=== PATIENT | female | born 1985 | race Caucasian/White ===

== ENCOUNTER 2016-06-26 17:09 | Observation (INO) | payer MEDICAID ==
[~2016-06-26] VITALS: Ht 154.9 cm; Wt 79.8 kg
[2016-06-26] MEDS ORDERED: NATURAL IRON65 MG PO (18:11)
[2016-06-26] MEDS ORDERED: PRENATAL LOW IR1 TA1 PO (18:11)
[2016-06-26 18:16] VITALS: BP 102/68
[2016-06-26] MEDS ORDERED: TERBUTALINE 1 MG/ML VIAL SUBQ SCH (21:35)
[2016-06-26] MEDS ORDERED: TERBUTALINE 1 MG/ML VIAL SUBQ ONE (22:39)
[2016-06-27] MEDS ORDERED: TERBUTALINE 2.5 MG TAB ONE ×2 (00:10→10:32)
[2016-06-27] MEDS ORDERED: TERBUTALINE 2.5 MG TAB PO SCH (06:00)
--- NOTE | 2016-06-27 08:36 | NUR ---
PATIENT HAS BEEN SCREENED AND CATEGORIZED LOW NUTRITION RISK. PATIENT WILL BE SEEN WITHIN 7 DAYS OF ADMISSION. 07/03/[address]
== END 2016-06-27 11:45 | disposition home or self-care (01) ==
LOC: MLD 17:09
PROVIDERS: ADMIT Obstetrics & Gynecology; ATTEND Obstetrics & Gynecology
DX: O26.899 Other specified pregnancy related conditions, unspecified trimester (principal); R10.9 Unspecified abdominal pain; Z3A.00 Weeks of gestation of pregnancy not specified
CPT/HCPCS: 59025; 76805; 96372; G0378; J3105; Q0092

== ENCOUNTER 2016-06-27 18:01 | Inpatient (IN) | payer MEDICAID ==
[~2016-06-27] VITALS: Ht 154.9 cm; Wt 78.5 kg
[~2016-06-27 18:01] MED LIST: NATURAL IRON65 MG PO; PRENATAL LOW IR1 TA1 PO
[2016-07-03] MEDS ORDERED: LACTATED RINGERS 1,000 ML IV SCH (21:43)
[2016-07-03] MEDS ORDERED: NALBUPHINE HYDROCHLORIDE 10 MG/ML VIAL IM SCH (21:45)
[2016-07-03] MEDS ORDERED: TERBUTALINE 1 MG/ML VIAL SUBQ SCH (21:45)
[2016-07-03] MEDS ORDERED: TERBUTALINE 1 MG/ML VIAL SUBQ ONE (22:02)
[2016-07-03] MEDS ORDERED: AMPICILLIN 2,000 MG VIAL ONE (22:38)
[2016-07-03] MEDS: AMPICILLIN 2,000 MG in NACL 0.9% MINI-BAG PLUS 100 ML IV SCH (22:46)
[2016-07-04] MEDS ORDERED: AMPICILLIN 2,000 MG VIAL ONE ×3 (02:52→10:50)
[2016-07-04] MEDS: AMPICILLIN 2,000 MG in NACL 0.9% MINI-BAG PLUS 100 ML IV SCH ×2 (02:55→07:39)
[2016-07-04] MEDS ORDERED: NALBUPHINE HYDROCHLORIDE 10 MG/ML VIAL ONE (05:30)
--- NOTE | 2016-07-04 07:49 | NUR ---
PATIENT HAS BEEN SCREENED AND CATEGORIZED LOW NUTRITION RISK. PATIENT WILL BE SEEN WITHIN 7 DAYS OF ADMISSION. 07/10/[address]
[2016-07-04] MEDS ORDERED: CITRIC ACID/SODIUM CITRATE 30 ML UDC ONE (11:00)
[2016-07-04] MEDS ORDERED: BUPIVACAINE-MPF 0.75% 10 ML VIAL INJ ONE (11:03)
[2016-07-04] MEDS ORDERED: ONDANSETRON 4 MG/2 ML VIAL ONE (11:03)
[2016-07-04] MEDS ORDERED: PROPOFOL 200 MG/20 ML VIAL IV ONE (11:03)
[2016-07-04] MEDS ORDERED: KETOROLAC 30 MG/ML VIAL ONE (11:03)
[2016-07-04] MEDS ORDERED: METOCLOPRAMIDE 10 MG/2 ML INJ VIAL ONE (11:03)
[2016-07-04] MEDS ORDERED: MORPHINE PRES FREE 10 MG/10 ML AMP IV ONE (11:11)
[2016-07-04] MEDS ORDERED: NALOXONE 0.4 MG/ML VIAL IVP PRN ×2 (11:45)
[2016-07-04] MEDS ORDERED: OXYTOCIN 20 UNITS/LR PREMIX 1,000 ML IV SCH (11:45)
[2016-07-04] MEDS ORDERED: diphenhydrAMINE 50 MG/ML VIAL IVP PRN (11:45)
[2016-07-04] MEDS ORDERED: KETOROLAC 30 MG/ML VIAL IVP PRN ×2 (11:45→13:35)
[2016-07-04] MEDS ORDERED: OXYTOCIN 20 UNITS/LR PREMIX 1,000 ML IV ONE (13:20)
[2016-07-04] MEDS ORDERED: MEASLES, MUMPS, AND RUBELLA 1 VIAL SQVAC PRN (13:35)
[2016-07-04] MEDS ORDERED: HYDROmorphone 1 MG/ML AMP IVP PRN (13:35)
[2016-07-04] MEDS ORDERED: diphenhydrAMINE 50 MG/ML VIAL ONE (13:37)
[2016-07-04] MEDS: OXYTOCIN 20 UNITS/LR PREMIX 1,000 ML IV SCH (19:23)
[2016-07-05] MEDS: OXYTOCIN 20 UNITS/LR PREMIX 1,000 ML IV SCH ×2 (02:25→10:13)
[2016-07-05] MEDS: IBUPROFEN 600 MG TAB PO PRN (22:24)
[2016-07-06] MEDS ORDERED: KETOROLAC 30 MG/ML VIAL IM SCH (00:20)
[2016-07-06] MEDS ORDERED: SODIUM PHOSPHATE 118 ML ENEM RC PRN (08:00)
[2016-07-06] MEDS ORDERED: SIMETHICONE 80 MG TAB.CHEW PO PRN (08:00)
[2016-07-06] MEDS: DOCUSATE SODIUM 100 MG GELCAP PO PRN (08:40)
[2016-07-06] MEDS: BISACODYL 5 MG TABEC PO PRN (08:41)
[2016-07-06] MEDS: oxyCODONE/APAP 5/325 MG 1 TAB TAB PO PRN ×2 (12:40→18:30)
[2016-07-07] MEDS: oxyCODONE/APAP 5/325 MG 1 TAB TAB PO PRN ×3 (00:11→22:48)
[2016-07-07] MEDS: DOCUSATE SODIUM 100 MG GELCAP PO PRN ×2 (08:15→20:12)
[2016-07-07] MEDS: BISACODYL 5 MG TABEC PO PRN ×2 (08:16→20:12)
[2016-07-07] MEDS: IBUPROFEN 600 MG TAB PO PRN (20:12)
[2016-07-08] MEDS: IBUPROFEN 600 MG TAB PO PRN (01:14)
[2016-07-08] MEDS: oxyCODONE/APAP 5/325 MG 1 TAB TAB PO PRN ×2 (04:01→13:14)
== END 2016-07-08 16:30 | disposition home or self-care (01) | DRG 540 ==
LOC: MLD 07-03 20:31 → MFCC 07-04 11:52
PROVIDERS: ADMIT Obstetrics & Gynecology; ATTEND Obstetrics & Gynecology
PROC: 3E0234Z Introduction of Serum, Toxoid and Vaccine into Muscle, Percutaneous Approach (ICD-10-PCS; 2016-07-04)
PROC: 10D00Z1 Extraction of Products of Conception, Low, Open Approach (ICD-10-PCS; principal; 2016-07-04 11:00)
DX: O34.211 Maternal care for low transverse scar from previous cesarean delivery (principal); O75.82 Onset (spontaneous) of labor after 37 completed weeks of gestation but before 39 completed weeks gestation, with delivery by (planned) cesarean section; Z23 Encounter for immunization; Z37.0 Single live birth; Z3A.38 38 weeks gestation of pregnancy